=== PATIENT | female | born 1970 | race Caucasian/White ===

== ENCOUNTER 2017-10-31 10:34 | Emergency (ER) | payer SELFPAY ==
--- NOTE | 2017-10-31 10:40 | DI.RAD.S_ITS ---
PROCEDURE: XR CHEST 1V INDICATIONS: Chest Pain TECHNIQUE: One view of the chest was acquired. COMPARISON: None. FINDINGS: Surgical changes and devices: None. Lungs and pleura: No pleural effusions or pneumothorax. Lungs are clear. Mediastinum: Mediastinal contours appear normal. Heart size is normal. Bones and chest wall: No suspicious bony lesions. Overlying soft tissues appear unremarkable. IMPRESSION: No acute pulmonary process. Dictated by: Sara Garcia M.D. on 10/31/2017 at 10:52 Approved by: Sara Garcia M.D. on 10/31/2017 at 11:03
[2017-10-31 10:45] VITALS: BP 154/73; PULSE 74; RESP 13; TEMP 36.2; O2SAT 100
[2017-10-31] MEDS: ASPIRIN 81 MG TAB 324 MG PO (10:57)
[2017-10-31] MEDS: SODIUM CHLORIDE 0.9% 1,000 ML 150 ML IV (10:57)
[2017-10-31 11:03] LABS: Add Manual Diff / Slide Review NO; Basophils Percent Auto 0.5 % (0-2); Hemoglobin 13.1 g/dL (12.0-16.0); Lymphocytes Percent Auto 27.6 % (25-40); Mean Corpuscular HGB Conc 34.4 % (30-36); Mean Corpuscular Hemoglobin 30.7 PG (26-34); Monocytes Percent Auto 5.2 % (3-14); Neutrophils Absolute Auto 4800 /uL (3000-5900); Neutrophils Percent Auto 65.7 % (50-75); Platelet Count 243 X10^3/uL (150-400); Red Blood Cell Count 4.27 X10^6/uL (4.0-5.2); Red Cell Distribution Width 13.7 % (11.6-14.8); White Blood Cell Count 7.3 X10^3/uL (4.5-11.0)
[2017-10-31 11:16] VITALS: BP 154/73; PULSE 58; RESP 12; O2SAT 100
[2017-10-31 11:23] LABS: Alanine Aminotransferase 24 IU/L (9-52); Albumin 4.4 g/dL (3.5-5.0); Albumin Globulin Ratio 1.5 (1.0-2.8); Alkaline Phosphatase 65 U/L (38-126); Aspartate Aminotransferase 19 IU/L (14-36); Bilirubin Total 0.5 mg/dL (0.2-1.3); Blood Urea Nitrogen 14 mg/dL (7-17); Calcium 9.4 mg/dL (8.4-10.2); Carbon Dioxide 30 mmol/L (22-32); Chloride 98 mmol/L (98-107); Creatine Kinase 80 U/L (30-135); Estimated Glomerular Filt Rate > 60.0 mL/min (>60); Globulin 2.9 g/dL (1.7-4.1); Glucose 203 mg/dL (70-100); HEMOLYSIS < 15 (0-50); Lipase 44 U/L (23-300); Potassium 3.9 mmol/L (3.4-5.1); Sodium 139 mmol/L (137-145); Total Protein 7.3 g/dL (6.3-8.2)
[2017-10-31 11:34] LABS: Troponin I < 0.012 ng/mL (0.01-0.034)
[2017-10-31 11:40] VITALS: BP 140/68; PULSE 62; RESP 15; O2SAT 100
[2017-10-31 12:24] VITALS: BP 149/75; PULSE 62; RESP 12; O2SAT 100
[2017-10-31 13:31] VITALS: BP 141/69; PULSE 65; RESP 23; O2SAT 100
[2017-10-31 14:02] LABS: Troponin I < 0.012 ng/mL (0.01-0.034)
[2017-10-31 14:09] VITALS: BP 140/74; PULSE 65; RESP 18; O2SAT 100
--- NOTE | 2017-10-31 19:43 | ED_ITS ---
HPI - Chest Pain General Chief Complaint: Chest Pain Stated Complaint: CHEST PAIN Time Seen by Provider: 10/31/17 10:38 Source: patient Mode of arrival: ambulatory Limitations: no limitations History of Present Illness HPI narrative: Patient presents to the emergency department today with a chief complaint of a recurrence of left anterior chest pain with radiation to her left shoulder. She has had symptoms off and on since January and last evaluation was in January. She had been admitted for chest pain and was diagnosed with left anterior chest strain. Her pain has been present for the past few days and seems to maybe be more intense when she is active. She denies associated symptoms such as dizziness, weakness or lightheadedness. She denies any shortness of breath. She has had no recent injury nor cough with productive sputum. She was seen and evaluated by her primary care provider in sent here for a more thorough evaluation MD complaint: chest pain Onset (ago): day(s) Duration: constant Onset: during rest Pain location: left chest Severity: moderate Quality: aching and sharp Pain radiation: LUE Relieving factors: nothing Exacerbating factors: nothing Context: recent illness Related Data Home Medications Medication Instructions Recorded Confirmed ibuprofen 1 dose PO PRN PRN 10/31/17 10/31/17 lisinopril 10 mg PO QPM 10/31/17 10/31/17 metformin 500 mg PO BID 10/31/17 10/31/17 Allergies Allergy/AdvReac Type Severity Reaction Status Date / Time Sulfa (Sulfonamide Allergy Mild HIVES Verified 10/31/17 10:57 Antibiotics) [SULFA (SULFONAMIDE ANTIBIOTICS)] Review of Systems Review of Systems All systems reviewed & are unremarkable except as noted in HPI and below Constitutional Denies chills, Denies fever(s), Denies lethargy and Denies weakness Eyes Denies change in vision, Denies eye discharge, Denies irritation and Denies loss of vision ENT Ears, Nose, Mouth, and Throat: Denies change in voice, Denies neck pain and Denies sore throat Cardiovascular Reports chest pain, Denies irregular heart rhythm, Denies lightheadedness, Denies palpitations, Denies dyspnea, Denies dyspnea on exertion and Denies orthopnea Respiratory Denies cough, Denies dyspnea, Denies dyspnea on exertion and Denies wheezing Gastrointestinal Gastrointestinal: Denies abdominal pain, Denies change in bowel habits, Denies diarrhea, Denies nausea and Denies vomiting Genitourinary Denies hematuria, Denies flank pain, Denies urinary incontinence and Denies urinary urgency Musculoskeletal Denies neck pain Integumentary/Breasts Denies pruritus, Denies erythema, Denies rash and Denies wounds Neurologic Denies confusion, Denies loss of vision and Denies weakness Psychiatric Denies anxiety, Denies confusion, Denies depression, Denies homicidal ideation and Denies suicidal ideation Endocrine Denies palpitations Hematologic/Lymphatic Denies easy bruising Allergic/Immunologic Denies wheezing Exam Initial Vital Signs Initial Vital Signs: Vital Signs Temperature 97.2 F L 10/31/17 10:45 Pulse Rate 74 10/31/17 10:45 Respiratory Rate 13 10/31/17 10:45 Blood Pressure 154/73 H 10/31/17 10:45 Pulse Oximetry 100 10/31/17 10:45 Const General: cooperative and well developed Nutritional Appearance: well nourished Orientation: alert, awake, oriented x3 and not confused HENWV Head: normocephalic and atraumatic Ears: external ears normal and TM's normal bilaterally Nose: external nose normal and No nasal discharge Face and sinus: sinuses nontender, face symmetric, no sinus tenderness and No dry mucous membranes Mouth: oral mucosae normal and moist mucous membranes Teeth and gingiva: dentition normal Throat: tonsils normal and uvula midline Eyes General: appearance normal, both eyes and all related structures Eyelids: eyelids normal Conjunctivae: conjunctivae normal Sclera: sclerae normal Pupils: PERRL EOM: EOM intact bilaterally Neck Neck: normal visual inspection, trachea midline, No lymphadenopathy, No midline deformity and No JVD Lymphatic: No lymphedema Chest Other: Tender to palpation in left anterior chest into axilla Resp Effort & Inspection: normal respiratory effort, able to speak in complete sentences, no respiratory distress and no use of accessory muscles Auscultation: clear to auscultation bilaterally, no rales, no rhonchi and no wheezes Cardio Rate: regular rate Rhythm: regular rhythm Heart Sounds: no click, no gallops, no murmurs and no rubs Pulses: normal peripheral pulses GI Inspection: non-distended Palpation: soft, no hepatosplenomegaly, No guarding, No pulsatile mass and No tender Auscultation: normal bowel sounds Back/Spine/Pelvis Back: No CVA tenderness Cervical Spine: cervical ROM normal and No pain with cervical ROM Thoracic/Lumbar Spine: thoracic and lumbar spine normal to inspection Skin General: no rashes or lesions noted, No jaundice and No petechiae Neuro General: alert, oriented x3, gait normal and no focal motor deficits Speech: speech normal Extrem General: full ROM, no clubbing, cyanosis or edema, no pedal edema and no calf tenderness Psych Appearance: well kempt Mental Status: mental status grossly normal Attitude: cooperative Thought Content: normal and suicidality Judgment: judgment good Course Orders Ordered: ED Orders 10/31/17 13:28 Troponin I Stat Discontinued Medications Aspirin (Aspirin Chew) 324 mg PO NOW ONE Stop: 10/31/17 10:41 Last Admin: 10/31/17 10:57 Dose: 324 mg Sodium Chloride (Normal Saline 0.9%) 1,000 mls @ 150 mls/hr IV CONT TAURUS Last Admin: 10/31/17 10:57 Dose: 150 mls/hr Vital Signs - 8 hr 10/31/17 12:24 10/31/17 13:31 10/31/17 14:09 Pulse Rate 62 65 65 Respiratory Rate 12 23 18 Blood Pressure [Left Arm] 149/75 H 141/69 H 140/74 H Pulse Oximetry 100 100 100 MDM - Chest Pain Differential Diagnosis Likely stable angina, unstable angina pectoris, atypical chest pain, st elevation myocardial infarction, costochondritis, chest pain and biliary colic Medical Records Data Attestation: I reviewed the patient's medical records. Lab Data Result diagrams: 10/31/17 10:48 10/31/17 10:48 Lab Results 10/31/17 10/31/17 10/31/17 Range/Units 10:48 10:48 13:28 WBC 7.3 (4.5-11.0) X10^3/uL RBC 4.27 (4.0-5.2) X10^6/uL Hgb 13.1 (12.0-16.0) g/dL Hct 38.0 (36-46) % MCV 89.0 (80-100) fL MCH 30.7 (26-34) PG MCHC 34.4 (30-36) % RDW 13.7 (11.6-14.8) % Plt Count 243 (150-400) X10^3/uL Neut % (Auto) 65.7 (50-75) % Lymph % (Auto) 27.6 (25-40) % [place] % (Auto) 5.2 (3-14) % Eos % (Auto) 1.0 L (2-4) % Baso % (Auto) 0.5 (0-2) % Neut # (Auto) 4800 (2364-0702) /uL Sodium 139 (137-145) mmol/L Potassium 3.9 (3.4-5.1) mmol/L Chloride 98 (98-107) mmol/L Carbon Dioxide 30 (22-32) mmol/L BUN 14 (7-17) mg/dL Creatinine 0.70 (0.52-1.04) mg/dL Estimated GFR > 60.0 (>60) mL/min BUN/Creatinine Ratio 20.0 (6-22) Glucose 203 H (70-100) mg/dL Calcium 9.4 (8.4-10.2) mg/dL Total Bilirubin 0.5 (0.2-1.3) mg/dL AST 19 (14-36) IU/L ALT 24 (9-52) IU/L Alkaline Phosphatase 65 (38-126) U/L Total Creatine Kinase 80 (30-135) U/L Troponin I < 0.012 < 0.012 (0.01-0.034) ng/mL Total Protein 7.3 (6.3-8.2) g/dL Albumin 4.4 (3.5-5.0) g/dL Globulin 2.9 (1.7-4.1) g/dL Albumin/Globulin Ratio 1.5 (1.0-2.8) Lipase 44 (23-300) U/L Discharge Plan Departure Patient Disposition: Home, Self-Care Clinical Impression: Atypical chest pain Discharge Date/Time: 10/31/17 14:24 Interventions: ED Discharge Assessment Last Done: 10/31/17 14:23 Instructions: DI for Atypical Chest Pain Activity Restrictions/Additional Instructions: *You have been diagnosed with [ atypical chest pain ] *What to do: * continue to take medications as directed *Follow up with your primary care provider in 2-3 days, call for an appointment. Let them know you were seen in the Emergency Department and that we ask that you be seen in follow up *Return to ER if you should have any new, worsening or concerning symptoms Prescriptions: No Action metformin 500 mg Tablet 500 mg PO BID RF: 0 lisinopril 10 mg Tablet 10 mg PO QPM RF: 0 ibuprofen 200 mg Tablet 1 dose PO PRN PRN (Reason: Pain, Mild) RF: 0 Referrals: Roxanna Rasmussen ARNP [Primary Care Provider] -
--- NOTE | 2017-12-03 11:23 | PC.NURSE ---
Addendum entered by Tiffanie Workman R.N. 12/03/17 11:24: Late entry Original Note: IV Normal Saline infusion stopped at 1424 at time of discharge. Waste amount 400 mL.
== END 2017-10-31 14:24 | disposition home or self-care (01) ==
PROVIDERS: Emergency Provider Emergency Medicine; PCP Nurse Practitioner Family
DX: R07.89 Other chest pain (principal)
CPT/HCPCS: 36415; 36591; 71045; 80053; 81003; 82550; 82553; 83690; 84484; 85025; 93005; 93010; 96360; 96361; 99283; 99285

== ENCOUNTER → 2018-05-04 11:20 | Outpatient (REF) | payer OTHER, SELFPAY ==
[2018-05-04 11:44] LABS: Influenza A and B by PCR Rapid Negative (Negative)
== END ==
LOC: LAB 11:20
PROVIDERS: PCP Nurse Practitioner Family; Visit Provider Nurse Practitioner Family
DX: R05 Cough (principal)
CPT/HCPCS: 87400

== ENCOUNTER → 2018-05-04 11:24 | Outpatient (CLI) | payer OTHER, SELFPAY ==
--- NOTE | 2018-05-04 | DI.RAD.S_ITS ---
PROCEDURE: XR CHEST 2V INDICATIONS: COUGH TECHNIQUE: 2 views of the chest were acquired. COMPARISON: [facility], CR, XR CHEST 1V, 10/31/2017, 10:47. FINDINGS: Surgical changes and devices: None. Lungs and pleura: Lungs are clear. No pleural effusions or pneumothorax. Mediastinum: Mediastinal contours are normal. Heart size is normal. Bones and chest wall: No suspicious bony abnormalities. Soft tissues appear unremarkable. IMPRESSION: No acute cardiopulmonary disease. Dictated by: Jack Pryor M.D. on 05/04/2018 at 12:36 Approved by: Jack Pryor M.D. on 05/04/2018 at 12:36
== END ==
PROVIDERS: PCP Nurse Practitioner Family; Visit Provider Nurse Practitioner Family
DX: R05 Cough (principal)
CPT/HCPCS: 71046

== ENCOUNTER 2018-11-25 19:30 | Emergency (ER) | payer OTHER, SELFPAY ==
[2018-11-25] VITALS (8 sets, daily range): BP systolic 126–159; BP diastolic 50–82; PULSE 64–82; RESP 10–21; TEMP 36.7; O2SAT 96–100; BMI 34.6
--- NOTE | 2018-11-25 19:42 | ED.CHESTPAIN ---
HPI - Chest Pain General Chief Complaint: Dizziness Stated Complaint: nausea/vomiting dizzy sob today Time Seen by Provider: 11/25/18 19:34 Source: patient and family Mode of arrival: ambulatory Limitations: no limitations History of Present Illness HPI narrative: 48-year-old female nonsmoker with history of hypertension and diabetes presents with a chief complaint of a sudden onset epigastric discomfort with nausea and subsequent, albeit brief, dizziness. She denies provocation, palliation or radiation of her discomfort. She denies chest pain or shortness of breath. She denies any history of the same. She denies recent trauma, recent travel, history of clots. She frequently exercises on the elliptical machine and denies any chest pain or other cardiac equivalent. She had eaten some foul tasting food about an hour prior to her symptoms and questions whether it may have been bad food. Additionally she was up much later than normal last night, slept in later than normal today and has not eaten as much is that which would be normal for MD complaint: other Onset (ago): hour(s) Duration: improved Onset: during rest Pain location: epigastric Severity: mild Quality: aching Pain radiation: none Relieving factors: nothing Exacerbating factors: nothing Associated symptoms: nausea and other Treatments prior to arrival chest pain: none Related Data Home Medications Medication Instructions Recorded Confirmed ibuprofen 1 dose PO PRN PRN 10/31/17 10/31/17 lisinopril 10 mg PO QPM 10/31/17 10/31/17 metformin 500 mg PO BID 10/31/17 10/31/17 Allergies Allergy/AdvReac Type Severity Reaction Status Date / Time Sulfa (Sulfonamide Allergy Mild HIVES Verified 11/25/18 19:41 Antibiotics) [SULFA (SULFONAMIDE ANTIBIOTICS)] atorvastatin [From Lipitor] Allergy Verified 11/25/18 19:41 Review of Systems Constitutional Constitutional: Denies chills, Denies fatigue, Denies fever(s), Denies frequent falls, Denies lethargy and Denies weakness Eyes Eyes: Denies change in vision, Denies eye discharge, Denies irritation and Denies loss of vision ENT Ears, Nose, Mouth, and Throat: Denies change in voice, Denies dizziness, Denies neck pain, Denies sore throat and Denies throat swelling Cardiovascular Cardiovascular: Denies chest pain, Denies irregular heart rhythm, Denies lightheadedness, Denies palpitations, Denies dyspnea, Denies dyspnea on exertion and Denies orthopnea Respiratory Respiratory: Denies cough, Denies dyspnea, Denies dyspnea on exertion and Denies wheezing Gastrointestinal Gastrointestinal: Denies abdominal pain, Denies change in bowel habits, Denies diarrhea, Reports nausea and Denies vomiting Genitourinary Genitourinary: Denies hematuria, Denies flank pain, Denies urinary incontinence and Denies urinary urgency Musculoskeletal Musculoskeletal: Denies back pain, Denies muscle weakness, Denies neck pain, Denies numbness and Denies tingling Integumentary/Breasts Skin/Breast: Denies pruritus, Denies erythema, Denies rash and Denies wounds Neurologic Neurologic: Denies behavioral changes, Denies confusion, Denies dizziness, Denies frequent falls, Denies loss of vision, Denies numbness, Denies tingling and Denies weakness Psychiatric Psychiatric: Denies anxiety, Denies behavioral changes, Denies confusion, Denies depression, Denies homicidal ideation and Denies suicidal ideation Endocrine Endocrine: Denies fatigue, Denies flushing and Denies palpitations Hematologic/Lymphatic Hematologic/Lymphatic: Denies easy bruising Allergic/Immunologic Allergic/Immunologic: Denies urticaria, Denies throat swelling and Denies wheezing [facility] Social History Smoking Status: Unknown if ever smoked Social History Smoking Status: Unknown if ever smoked Exam Narrative Exam Narrative: GENERAL: [48] year old patient appears stated age. Well-nourished, well-developed patient, in mild distress. HEAD: Atraumatic. Normocephalic. EYES: Pupils equal round and reactive. Extraocular motions intact. No scleral icterus. No injection or drainage. ENT: Nose without bleeding, purulent drainage. Throat without erythema, tonsillar hypertrophy or exudate. Airway patent. NECK: Trachea midline. Non tender CARDIOVASCULAR: Regular rate and rhythm without murmurs, gallops, or rubs. RESPIRATORY: Clear to auscultation. Breath sounds equal bilaterally. No wheezes, rales, or rhonchi. GASTROINTESTINAL: Abdomen soft, non-tender, nondistended. EXTREMITIES: No edema or joint tenderness. BACK: Nontender without deformity or crepitance. No flank tenderness. NEURO: AOx3. SKIN: No rash or erythema of visible areas NIH Stroke Scale 1a. LOC: Patient is alert and keenly responsive (0) 1b. LOC Questions: Patient answers both LOC questions accurately (0) 1c. LOC Commands: Patient performs both tasks correctly (0) 2. Best Gaze: Normal (0) 3. Visual: No visual loss (0) 4. Facial palsy: Normal symmetrical movements (0) 5. Motor arm: No drift (0) 6. Motor leg: No drift (0) 7. Limb ataxia: Absent (0) 8. Sensory: Normal (0) 9. Best language: No aphasia; normal (0) 10. Dysarthria: Normal (0) 11. Extinction and inattention: No abnormality (0) NIHSS: 0 Initial Vital Signs Initial Vital Signs: Vital Signs Temperature 98.1 F 11/25/18 19:38 Pulse Rate 78 11/25/18 19:38 Respiratory Rate 21 11/25/18 19:38 Blood Pressure 159/82 H 11/25/18 19:38 Pulse Oximetry 100 11/25/18 19:38 Course Orders Ordered: ED Orders 11/25/18 22:55 Troponin I Stat Discontinued Medications Aspirin (Aspirin Chew) 324 mg PO NOW ONE Stop: 11/25/18 19:44 Last Admin: 11/25/18 19:54 Dose: 324 mg Documented by: JON Sodium Chloride (Normal Saline 0.9%) 1,000 mls @ 150 mls/hr IV CONT TAURUS Last Infusion: 11/26/18 00:14 Dose: 0 mls/hr Documented by: Admin: 11/25/18 19:57 Dose: 150 mls/hr Documented by: JON Vital Signs Vital signs: Vital Signs - 8 hr 11/26/18 00:12 Pulse Rate 68 Respiratory Rate 16 Blood Pressure 138/74 Pulse Oximetry 98 MDM - Chest Pain Lab Data Result diagrams: 11/25/18 19:40 11/25/18 19:40 Labs: Lab Results 11/25/18 11/25/18 11/25/18 Range/Units 19:40 19:40 19:40 WBC 10.1 (4.5-11.0) X10^3/uL RBC 4.73 (4.0-5.2) X10^6/uL Hgb 14.0 (12.0-16.0) g/dL Hct 41.5 (36-46) % MCV 87.7 (80-100) fL MCH 29.6 (26-34) PG MCHC 33.7 (30-36) % RDW 13.7 (11.6-14.8) % Plt Count 265 (150-400) X10^3/uL Neut % (Auto) 61.8 (50-75) % Lymph % (Auto) 29.5 (25-40) % [place] % (Auto) 7.2 (3-14) % Eos % (Auto) 0.9 L (2-4) % Baso % (Auto) 0.6 (0-2) % Neut # (Auto) 6200 (2936-5404) /uL Lymph # (Auto) 3000 (6548-6816) /uL [place] # (Auto) 700 (0-900) /uL Eos # (Auto) 100 (0-450) /uL Baso # (Auto) 100 (0-100) /uL PT 11.0 (10.1-12.7) SECONDS INR 1.0 (0.9-1.3) APTT 34 (26.4-36.2) SECONDS D-Dimer 222 (<230) ng/mL Sodium 137 (137-145) mmol/L Potassium 3.5 (3.4-5.1) mmol/L Chloride 101 (98-107) mmol/L Carbon Dioxide 25 (22-32) mmol/L BUN 14 (7-17) mg/dL Creatinine 0.70 (0.52-1.04) mg/dL Estimated GFR > 60.0 (>60) mL/min BUN/Creatinine Ratio 20.0 (6-22) Glucose 160 H (70-100) mg/dL Calcium 9.8 (8.4-10.2) mg/dL Total Bilirubin 0.2 (0.2-1.3) mg/dL AST 33 (14-36) IU/L ALT 45 (9-52) IU/L Alkaline Phosphatase 86 (38-126) U/L Total Creatine Kinase 76 (30-135) U/L CK-MB (CK-2) TNP CK-MB (CK-2) Rel Index TNP Troponin I < 0.012 (0.01-0.034) ng/mL B-Natriuretic Peptide < 100 (<100) Total Protein 8.0 (6.3-8.2) g/dL Albumin 4.6 (3.5-5.0) g/dL Globulin 3.4 (1.7-4.1) g/dL Albumin/Globulin Ratio 1.4 (1.0-2.8) Lipase 80 (23-300) U/L 11/25/18 Range/Units 22:55 WBC (4.5-11.0) X10^3/uL RBC (4.0-5.2) X10^6/uL Hgb (12.0-16.0) g/dL Hct (36-46) % MCV (80-100) fL MCH (26-34) PG MCHC (30-36) % RDW (11.6-14.8) % Plt Count (150-400) X10^3/uL Neut % (Auto) (50-75) % Lymph % (Auto) (25-40) % [place] % (Auto) (3-14) % Eos % (Auto) (2-4) % Baso % (Auto) (0-2) % Neut # (Auto) (2469-5264) /uL Lymph # (Auto) (2807-8701) /uL [place] # (Auto) (0-900) /uL Eos # (Auto) (0-450) /uL Baso # (Auto) (0-100) /uL PT (10.1-12.7) SECONDS INR (0.9-1.3) APTT (26.4-36.2) SECONDS D-Dimer (<230) ng/mL Sodium (137-145) mmol/L Potassium (3.4-5.1) mmol/L Chloride (98-107) mmol/L Carbon Dioxide (22-32) mmol/L BUN (7-17) mg/dL Creatinine (0.52-1.04) mg/dL Estimated GFR (>60) mL/min BUN/Creatinine Ratio (6-22) Glucose (70-100) mg/dL Calcium (8.4-10.2) mg/dL Total Bilirubin (0.2-1.3) mg/dL AST (14-36) IU/L ALT (9-52) IU/L Alkaline Phosphatase (38-126) U/L Total Creatine Kinase (30-135) U/L CK-MB (CK-2) CK-MB (CK-2) Rel Index Troponin I < 0.012 (0.01-0.034) ng/mL B-Natriuretic Peptide (<100) Total Protein (6.3-8.2) g/dL Albumin (3.5-5.0) g/dL Globulin (1.7-4.1) g/dL Albumin/Globulin Ratio (1.0-2.8) Lipase (23-300) U/L Point of Care Testing Glucose POC 160 MDM Narrative Medical decision making narrative: Multiple etiologies for patient's symptoms considered including: [Multiple causes of chest pain considered including AK, PE, pneumothorax, pneumonia, aortic dissection, and pleurisy. Patient reports no radiation, no diaphoresis, no provocation with exertion, and no vomiting] Patient's symptoms improved or duration of stay with above-stated therapies. Findings and discharge diagnosis discussed with patient/family followed by verbalization of understanding Return precautions discussed with patient/family whom verbalize understanding. Discharge Plan Departure Patient Disposition: Home Clinical Impression: Atypical chest pain Discharge Date/Time: 11/26/18 00:12 Instructions: DI for Atypical Chest Pain Activity Restrictions/Additional Instructions: *You have been diagnosed with [atypical chest pain] *What to do: *Continue to take medications as directed *Follow up with your primary care provider in 2-3 days, call for an appointment. Let them know you were seen in the Emergency Department and that we ask that you be seen in follow up *Return to ER if you should have any new, worsening or concerning symptoms Prescriptions: No Action metformin 500 mg Tablet 500 mg PO BID RF: 0 lisinopril 10 mg Tablet 10 mg PO QPM RF: 0 ibuprofen 200 mg Tablet 1 dose PO PRN PRN (Reason: Pain, Mild) RF: 0 Referrals: Roxanna Rasmussen ARNP [Primary Care Provider] -
--- NOTE | 2018-11-25 19:43 | DI.RAD.S_ITS ---
PROCEDURE: XR CHEST 1V INDICATIONS: chest pain TECHNIQUE: One view of the chest was acquired. COMPARISON: [facility], CR, XR CHEST 1V, 10/31/2017, 10:47. FINDINGS: Surgical changes and devices: None. Lungs and pleura: Lungs are clear. No pleural effusions or pneumothorax. Mediastinum: Mediastinal contours appear normal. Heart size is normal. Bones and chest wall: No suspicious bony lesions. Overlying soft tissues appear unremarkable. IMPRESSION: No acute cardiopulmonary disease process. Dictated by: Jeanna Narvaez MD, PhD on 11/25/2018 at 20:19 Approved by: Jeanna Narvaez MD, PhD on 11/25/2018 at 20:19
[2018-11-25 19:52] LABS: Add Manual Diff / Slide Review NO; Basophils Absolute Auto 100 /uL (0-100); Basophils Percent Auto 0.6 % (0-2); Eosinophils Absolute Auto 100 /uL (0-450); Eosinophils Percent Auto 0.9 % (2-4); Hematocrit 41.5 % (36-46); Lymphocytes Absolute Auto 3000 /uL (1100-4500); Lymphocytes Percent Auto 29.5 % (25-40); Mean Corpuscular HGB Conc 33.7 % (30-36); Mean Corpuscular Hemoglobin 29.6 PG (26-34); Mean Corpuscular Volume 87.7 fL (80-100); Monocytes Absolute Auto 700 /uL (0-900); Monocytes Percent Auto 7.2 % (3-14); Neutrophils Absolute Auto 6200 /uL (1500-7000); Neutrophils Percent Auto 61.8 % (50-75); Platelet Count 265 X10^3/uL (150-400); Red Blood Cell Count 4.73 X10^6/uL (4.0-5.2); Red Cell Distribution Width 13.7 % (11.6-14.8); White Blood Cell Count 10.1 X10^3/uL (4.5-11.0)
[2018-11-25] MEDS: ASPIRIN 81 MG CHEW TAB 324 MG PO (19:54)
[2018-11-25] MEDS: SODIUM CHLORIDE 0.9% 1,000 ML 150 ML IV (19:57)
[2018-11-25 20:04] LABS: Alanine Aminotransferase 45 IU/L (9-52); Albumin 4.6 g/dL (3.5-5.0); Albumin Globulin Ratio 1.4 (1.0-2.8); Alkaline Phosphatase 86 U/L (38-126); Aspartate Aminotransferase 33 IU/L (14-36); Bilirubin Total 0.2 mg/dL (0.2-1.3); Blood Urea Nitrogen 14 mg/dL (7-17); Calcium 9.8 mg/dL (8.4-10.2); Carbon Dioxide 25 mmol/L (22-32); Chloride 101 mmol/L (98-107); Creatine Kinase 76 U/L (30-135); Estimated Glomerular Filt Rate > 60.0 mL/min (>60); Globulin 3.4 g/dL (1.7-4.1); Glucose 160 mg/dL (70-100); HEMOLYSIS < 15 (0-50); Lipase 80 U/L (23-300); Potassium 3.5 mmol/L (3.4-5.1); Sodium 137 mmol/L (137-145)
[2018-11-25 20:11] LABS: B Type Natriuretic Peptide < 100 (<100)
[2018-11-25 20:15] LABS: Troponin I < 0.012 ng/mL (0.01-0.034)
[2018-11-25 20:17] LABS: PTT Partial Thromboplastin Tim 34 SECONDS (26.4-36.2)
[2018-11-25 20:18] LABS: D Dimer 222 ng/mL (<230)
[2018-11-25 23:24] LABS: Troponin I < 0.012 ng/mL (0.01-0.034)
[2018-11-26 00:12] VITALS: BP 138/74; PULSE 68; RESP 16; O2SAT 98
== END 2018-11-26 00:12 | disposition home or self-care (01) ==
PROVIDERS: Emergency Provider Emergency Medicine; PCP Nurse Practitioner Family
DX: R07.89 Other chest pain (principal)
CPT/HCPCS: 36415; 36591; 71045; 80053; 82550; 82962; 83690; 83880; 84484; 85025; 85379; 85610; 85730; 93005; 96360; 96361; 99284; 99285

== ENCOUNTER 2019-10-17 16:53 | Observation (INO) | payer OTHER, SELFPAY ==
[2019-10-17] VITALS (8 sets, daily range): BP systolic 143–184; BP diastolic 66–82; PULSE 61–70; RESP 12–24; TEMP 36.3–36.6; O2SAT 97–100; BMI 34.7
--- NOTE | 2019-10-17 16:58 | DI.RAD.S_ITS ---
PROCEDURE: XR CHEST 2V INDICATIONS: chest pain TECHNIQUE: 2 views of the chest were acquired. COMPARISON: [facility], CR, XR CHEST 1V, 11/25/2018, 20:00. FINDINGS: Surgical changes and devices: None. Lungs and pleura: Lungs are clear. No pleural effusions or pneumothorax. Mediastinum: Central vasculature is mildly prominent and indistinct. Heart size is normal. Bones and chest wall: No suspicious bony abnormalities. Soft tissues appear unremarkable. IMPRESSION: 1. Findings suggest central venous congestion. Correlate with BNP. Dictated by: Deirdre Yusuf M.D. on 10/17/2019 at 17:33 Approved by: Deirdre Yusuf M.D. on 10/17/2019 at 17:34
[2019-10-17 17:17] LABS: Add Manual Diff / Slide Review NO; Basophils Absolute Auto 0 /uL (0-100); Basophils Percent Auto 0.5 % (0-2); Eosinophils Absolute Auto 100 /uL (0-450); Hematocrit 37.8 % (36-46); Hemoglobin 12.8 g/dL (12.0-16.0); Lymphocytes Absolute Auto 2100 /uL (1100-4500); Lymphocytes Percent Auto 26.8 % (25-40); Mean Corpuscular Hemoglobin 29.8 PG (26-34); Mean Corpuscular Volume 87.9 fL (80-100); Monocytes Absolute Auto 500 /uL (0-900); Monocytes Percent Auto 6.3 % (3-14); Neutrophils Absolute Auto 5200 /uL (1500-7000); Neutrophils Percent Auto 65.4 % (50-75); Platelet Count 224 X10^3/uL (150-400); Red Cell Distribution Width 13.6 % (11.6-14.8)
[2019-10-17 17:22] LABS: Prothrombin Time 11.7 SECONDS (10.1-12.7)
[2019-10-17 17:24] LABS: PTT Partial Thromboplastin Tim 38 SECONDS (26.4-36.2)
[2019-10-17 17:26] LABS: Alanine Aminotransferase 39 IU/L (<35); Albumin 4.6 g/dL (3.5-5.0); Albumin Globulin Ratio 1.6 (1.0-2.8); Alkaline Phosphatase 74 U/L (38-126); Aspartate Aminotransferase 31 IU/L (14-36); BUN Creatinine Ratio 16.4 (6-22); Bilirubin Total 0.4 mg/dL (0.2-1.3); Blood Urea Nitrogen 11 mg/dL (7-17); Calcium 9.6 mg/dL (8.4-10.2); Carbon Dioxide 28 mmol/L (22-32); Chloride 102 mmol/L (98-107); Creatine Kinase 84 U/L (30-135); Estimated Glomerular Filt Rate > 60.0 mL/min (>60); Globulin 2.8 g/dL (1.7-4.1); Glucose 142 mg/dL (70-100); HEMOLYSIS < 15 (0-50); Lipase 68 U/L (23-300); Potassium 3.8 mmol/L (3.4-5.1); Sodium 138 mmol/L (137-145); Total Protein 7.4 g/dL (6.3-8.2)
[2019-10-17 17:38] LABS: Troponin I < 0.012 ng/mL (0.01-0.034)
--- NOTE | 2019-10-17 18:25 | ED.CHESTPAIN ---
HPI - Chest Pain <Jose Armando Cassidy MD - Last Filed: 10/18/19 07:48> General Chief Complaint: Chest Pain Stated Complaint: chest pain, nausea Time Seen by Provider: 10/17/19 18:06 Source: patient Mode of arrival: Ambulatory Limitations: no limitations History of Present Illness HPI narrative: Patient awoke this morning with feelings of grogginess and trouble focusing. Had left arm discomfort. Radiating to the shoulder. Also had nausea. No palpitations or dyspnea. No diaphoresis. Patient is diabetic. No previous cardiac stress workup. Related Data Home Medications Medication Instructions Recorded Confirmed ibuprofen 1 dose PO PRN PRN 10/31/17 10/18/19 lisinopril 20 mg PO QPM 10/31/17 10/18/19 metformin 1,000 mg PO BID 10/31/17 10/18/19 hydrochlorothiazide 10 mg PO BEDTIME 10/18/19 10/18/19 Allergies Allergy/AdvReac Type Severity Reaction Status Date / Time Sulfa (Sulfonamide Allergy Mild HIVES Verified 10/17/19 16:55 Antibiotics) [SULFA (SULFONAMIDE ANTIBIOTICS)] atorvastatin [From Lipitor] Allergy Verified 10/17/19 16:55 Review of Systems <Jose Armando Cassidy MD - Last Filed: 10/18/19 07:48> Review of Systems Narrative: GENERAL: Denies chills, fatigue, malaise, fever, sweats. HEENT: Denies sinus pain, ear pain, sore throat, difficulty swallowing, dizziness. RESPIRATORY: Denies dyspnea, cough, wheezing, hemoptysis, sputum. CARDIOVASCULAR: Denies diaphoresis palpitations, has chest pain and left arm pain GASTROINTESTINAL: Denies vomiting, abdominal pain, diarrhea, constipation, melena. Complains of nausea : Denies dysuria, frequency, incontinence, hematuria, urinary retention. MUSCULOSKELETAL: denies weakness, joint pain, or bony pain SKIN: Denies rash, skin lesions, or other NEUROLOGIC: Denies weakness, headache, numbness, change in speech, confusion, seizures, incoordination. PSYCHIATRIC: No concerning psychosocial issues. ROS Unobtainable: All systems reviewed & are unremarkable except as noted in HPI and below Patient History <Jose Armando Cassidy MD - Last Filed: 10/18/19 07:48> Social History household members: spouse and children Smoking Status: Never smoker alcohol intake: current Smoking Status: Unknown if ever smoked alcohol intake frequency: holidays/special occasions only Substance Use Type: marijuana Exam <Jose Armando Cassidy MD - Last Filed: 10/18/19 07:48> Narrative Exam Narrative: GENERAL: patient appears stated age. Well-nourished, well-developed patient, in no distress, not toxic HEAD: Atraumatic. Normocephalic. EYES: Pupils equal round and reactive. Extraocular motions intact. No scleral icterus. No injection or drainage. ENT: Nose without bleeding, purulent drainage. Throat without erythema, tonsillar hypertrophy or exudate. Airway patent. NECK: Trachea midline. Non tender CARDIOVASCULAR: Regular rate and rhythm without murmurs, gallops, or rubs. RESPIRATORY: Clear to auscultation. Breath sounds equal bilaterally. No wheezes, rales, or rhonchi. GASTROINTESTINAL: Abdomen soft, non-tender, nondistended. EXTREMITIES: No edema or joint tenderness. BACK: Nontender without deformity or crepitance. No flank tenderness. NEURO: AOx3. SKIN: No rash or erythema of visible areas PSYCH: Not anxious, is cooperative Initial Vital Signs Initial Vital Signs: Vital Signs Temperature 97.9 F 10/17/19 16:56 Pulse Rate 70 10/17/19 16:56 Respiratory Rate 14 10/17/19 16:56 Blood Pressure 183/82 H 10/17/19 16:56 Pulse Oximetry 100 10/17/19 16:56 <Kelly Dutta MD - Last Filed: 10/18/19 23:52> Initial Vital Signs Initial Vital Signs: Vital Signs Temperature 97.9 F 10/17/19 16:56 Pulse Rate 70 10/17/19 16:56 Respiratory Rate 14 10/17/19 16:56 Blood Pressure 183/82 H 10/17/19 16:56 Pulse Oximetry 100 10/17/19 16:56 Course <Jose Armando Cassidy MD - Last Filed: 10/18/19 07:48> Course Course Narrative: Chest pain has improved. I was unable to place orders in for blood pressure medication for admission. Emergency nurse is going to contact floor nurse to contact on-call provider to put in orders Decision to Admit Date: 10/17/19 Decision to Admit time: 19:34 Orders Ordered: Discontinued Medications Acetaminophen (Tylenol) 650 mg PO Q6HR PRN PRN Reason: Fever/Mild Pain (1-3) Sodium Chloride (Normal Saline 0.9%) 1,000 mls @ 125 mls/hr IV CONT TAURUS Last Admin: 10/17/19 22:04 Dose: 125 mls/hr Documented by: ADE Metformin HCl (Glucophage) 1,000 mg PO BIDAC TAURUS Last Admin: 10/18/19 16:55 Dose: 1,000 mg Documented by: Admin: 10/18/19 08:29 Dose: 1,000 mg Documented by: BENJAMIN Nitroglycerin (Nitro-Bid) 1 inch TOP NOW ONE Stop: 10/17/19 18:26 Last Admin: 10/17/19 19:02 Dose: 1 inch Documented by: JAMES Non-Formulary Medication (Patient's Own Medication) 0 each PO PRN PRN PRN Reason: HOME MEDICATION STORAGE Ondansetron HCl (Zofran) 4 mg IV Q4HR PRN PRN Reason: Nausea And Vomiting Reevaluation(s) Reevaluation #1: No new issues. Patient feeling better after nitro paste. Blood pressure is improved Time: 19:34 Consultations Consultation #1: Spoke with Dr. sadler, primary family group admits their own. Will admit. Patient already took her metformin and thiazide for today. She states she wants to take her own lisinopril tonight Time: 19:35 Vital Signs Vital signs: Vital Signs - 8 hr 10/17/19 19:00 10/17/19 19:02 10/17/19 19:30 Pulse Rate 61 62 68 Respiratory Rate 14 20 Blood Pressure 143/67 H 143/67 H Pulse Oximetry 99 100 10/17/19 19:31 10/17/19 20:00 Pulse Rate 68 67 Respiratory Rate 24 12 Blood Pressure 184/73 H 144/66 H Pulse Oximetry 99 97 <Kelly Dutta MD - Last Filed: 10/18/19 23:52> Orders Ordered: Discontinued Medications Acetaminophen (Tylenol) 650 mg PO Q6HR PRN PRN Reason: Fever/Mild Pain (1-3) Sodium Chloride (Normal Saline 0.9%) 1,000 mls @ 125 mls/hr IV CONT TAURUS Last Admin: 10/17/19 22:04 Dose: 125 mls/hr Documented by: ADE Metformin HCl (Glucophage) 1,000 mg PO BIDAC TUARUS Last Admin: 10/18/19 16:55 Dose: 1,000 mg Documented by: Admin: 10/18/19 08:29 Dose: 1,000 mg Documented by: BENJAMIN Nitroglycerin (Nitro-Bid) 1 inch TOP NOW ONE Stop: 10/17/19 18:26 Last Admin: 10/17/19 19:02 Dose: 1 inch Documented by: JAMES Non-Formulary Medication (Patient's Own Medication) 0 each PO PRN PRN PRN Reason: HOME MEDICATION STORAGE Ondansetron HCl (Zofran) 4 mg IV Q4HR PRN PRN Reason: Nausea And Vomiting Vital Signs Vital signs: Vital Signs - 8 hr 10/17/19 19:00 10/17/19 19:02 10/17/19 19:30 Pulse Rate 61 62 68 Respiratory Rate 14 20 Blood Pressure 143/67 H 143/67 H Pulse Oximetry 99 100 10/17/19 19:31 10/17/19 20:00 Pulse Rate 68 67 Respiratory Rate 24 12 Blood Pressure 184/73 H 144/66 H Pulse Oximetry 99 97 MDM - Chest Pain <Jose Armando Cassidy MD - Last Filed: 10/18/19 07:48> Lab Data Result diagrams: 10/17/19 17:05 10/17/19 17:05 Labs: Lab Results 10/17/19 10/17/19 10/17/19 Range/Units 17:05 17:05 17:05 WBC 8.0 (4.5-11.0) X10^3/uL RBC 4.30 (4.0-5.2) X10^6/uL Hgb 12.8 (12.0-16.0) g/dL Hct 37.8 (36-46) % MCV 87.9 (80-100) fL MCH 29.8 (26-34) PG MCHC 34.0 (30-36) % RDW 13.6 (11.6-14.8) % Plt Count 224 (150-400) X10^3/uL Neut % (Auto) 65.4 (50-75) % Lymph % (Auto) 26.8 (25-40) % [place] % (Auto) 6.3 (3-14) % Eos % (Auto) 1.0 L (2-4) % Baso % (Auto) 0.5 (0-2) % Neut # (Auto) 5200 (5151-1094) /uL Lymph # (Auto) 2100 (1704-2605) /uL [place] # (Auto) 500 (0-900) /uL Eos # (Auto) 100 (0-450) /uL Baso # (Auto) 0 (0-100) /uL PT 11.7 (10.1-12.7) SECONDS INR 1.0 (0.9-1.3) APTT 38 H D (26.4-36.2) SECONDS Sodium 138 (137-145) mmol/L Potassium 3.8 (3.4-5.1) mmol/L Chloride 102 (98-107) mmol/L Carbon Dioxide 28 (22-32) mmol/L BUN 11 (7-17) mg/dL Creatinine 0.67 (0.52-1.04) mg/dL Estimated GFR > 60.0 (>60) mL/min BUN/Creatinine Ratio 16.4 (6-22) Glucose 142 H (70-100) mg/dL Calcium 9.6 (8.4-10.2) mg/dL Total Bilirubin 0.4 (0.2-1.3) mg/dL AST 31 (14-36) IU/L ALT 39 H (<35) IU/L Alkaline Phosphatase 74 (38-126) U/L Total Creatine Kinase 84 (30-135) U/L CK-MB (CK-2) TNP CK-MB (CK-2) Rel Index TNP Troponin I < 0.012 (0.01-0.034) ng/mL NT-Pro-B Natriuret Pep (<125) pg/mL Total Protein 7.4 (6.3-8.2) g/dL Albumin 4.6 (3.5-5.0) g/dL Globulin 2.8 (1.7-4.1) g/dL Albumin/Globulin Ratio 1.6 (1.0-2.8) Lipase 68 (23-300) U/L COVID-19 PCR (Negative) 07/29/20 07/29/20 Range/Units 18:11 19:15 WBC (4.5-11.0) X10^3/uL RBC (4.0-5.2) X10^6/uL Hgb (12.0-16.0) g/dL Hct (36-46) % MCV (80-100) fL MCH (26-34) PG MCHC (30-36) % RDW (11.6-14.8) % Plt Count (150-400) X10^3/uL Neut % (Auto) (50-75) % Lymph % (Auto) (25-40) % [place] % (Auto) (3-14) % Eos % (Auto) (2-4) % Baso % (Auto) (0-2) % Neut # (Auto) (0913-7993) /uL Lymph # (Auto) (4565-1830) /uL [place] # (Auto) (0-900) /uL Eos # (Auto) (0-450) /uL Baso # (Auto) (0-100) /uL PT (10.1-12.7) SECONDS INR (0.9-1.3) APTT (26.4-36.2) SECONDS Sodium (137-145) mmol/L Potassium (3.4-5.1) mmol/L Chloride (98-107) mmol/L Carbon Dioxide (22-32) mmol/L BUN (7-17) mg/dL Creatinine (0.52-1.04) mg/dL Estimated GFR (>60) mL/min BUN/Creatinine Ratio (6-22) Glucose (70-100) mg/dL Calcium (8.4-10.2) mg/dL Total Bilirubin (0.2-1.3) mg/dL AST (14-36) IU/L ALT (<35) IU/L Alkaline Phosphatase (38-126) U/L Total Creatine Kinase (30-135) U/L CK-MB (CK-2) CK-MB (CK-2) Rel Index Troponin I (0.01-0.034) ng/mL NT-Pro-B Natriuret Pep 86 (<125) pg/mL Total Protein (6.3-8.2) g/dL Albumin (3.5-5.0) g/dL Globulin (1.7-4.1) g/dL Albumin/Globulin Ratio (1.0-2.8) Lipase (23-300) U/L COVID-19 PCR Negative (Negative) Imaging Data Chest x-ray: Radiologist's Impression: [address] [address] XRay Report Signed Patient: Elba YeagerMR#: [id number] : 1970Acct:[id number] Age/Sex: 48 / FDate of Service: 10/17/19 Loc: ED Accession Number: [id number] Procedure: XR chest 2V Ordering Provider: Jose Armando Csasidy MD PROCEDURE: XR CHEST 2V INDICATIONS: chest pain TECHNIQUE: 2 views of the chest were acquired. COMPARISON: [facility], , XR CHEST 1V, 11/25/2018, 20:00. FINDINGS: Surgical changes and devices: None. Lungs and pleura: Lungs are clear. No pleural effusions or pneumothorax. Mediastinum: Central vasculature is mildly prominent and indistinct. Heart size is normal. Bones and chest wall: No suspicious bony abnormalities. Soft tissues appear unremarkable. IMPRESSION: 1. Findings suggest central venous congestion. Correlate with BNP. Dictated by: Deirdre Yusuf M.D. on 10/17/2019 at 17:33 Approved by: Deirdre Yusuf M.D. on 10/17/2019 at 17:34 ECG Data Attestation: I personally reviewed and interpreted this ECG as follows: Interpretation: Normal sinus rhythm, ventricular rate 64, no ST elevation or depression <Kelly Dutta MD - Last Filed: 10/18/19 23:52> Lab Data Labs: Lab Results 10/17/19 10/17/19 10/17/19 Range/Units 17:05 17:05 17:05 WBC 8.0 (4.5-11.0) X10^3/uL RBC 4.30 (4.0-5.2) X10^6/uL Hgb 12.8 (12.0-16.0) g/dL Hct 37.8 (36-46) % MCV 87.9 (80-100) fL MCH 29.8 (26-34) PG MCHC 34.0 (30-36) % RDW 13.6 (11.6-14.8) % Plt Count 224 (150-400) X10^3/uL Neut % (Auto) 65.4 (50-75) % Lymph % (Auto) 26.8 (25-40) % [place] % (Auto) 6.3 (3-14) % Eos % (Auto) 1.0 L (2-4) % Baso % (Auto) 0.5 (0-2) % Neut # (Auto) 5200 (1300-8948) /uL Lymph # (Auto) 2100 (4480-1168) /uL [place] # (Auto) 500 (0-900) /uL Eos # (Auto) 100 (0-450) /uL Baso # (Auto) 0 (0-100) /uL PT 11.7 (10.1-12.7) SECONDS INR 1.0 (0.9-1.3) APTT 38 H D (26.4-36.2) SECONDS Sodium 138 (137-145) mmol/L Potassium 3.8 (3.4-5.1) mmol/L Chloride 102 (98-107) mmol/L Carbon Dioxide 28 (22-32) mmol/L BUN 11 (7-17) mg/dL Creatinine 0.67 (0.52-1.04) mg/dL Estimated GFR > 60.0 (>60) mL/min BUN/Creatinine Ratio 16.4 (6-22) Glucose 142 H (70-100) mg/dL Calcium 9.6 (8.4-10.2) mg/dL Total Bilirubin 0.4 (0.2-1.3) mg/dL AST 31 (14-36) IU/L ALT 39 H (<35) IU/L Alkaline Phosphatase 74 (38-126) U/L Total Creatine Kinase 84 (30-135) U/L CK-MB (CK-2) TNP CK-MB (CK-2) Rel Index TNP Troponin I < 0.012 (0.01-0.034) ng/mL NT-Pro-B Natriuret Pep (<125) pg/mL Total Protein 7.4 (6.3-8.2) g/dL Albumin 4.6 (3.5-5.0) g/dL Globulin 2.8 (1.7-4.1) g/dL Albumin/Globulin Ratio 1.6 (1.0-2.8) Lipase 68 (23-300) U/L COVID-19 PCR (Negative) 10/17/19 10/17/19 Range/Units 18:11 19:15 WBC (4.5-11.0) X10^3/uL RBC (4.0-5.2) X10^6/uL Hgb (12.0-16.0) g/dL Hct (36-46) % MCV (80-100) fL MCH (26-34) PG MCHC (30-36) % RDW (11.6-14.8) % Plt Count (150-400) X10^3/uL Neut % (Auto) (50-75) % Lymph % (Auto) (25-40) % One[place] % (Auto) (3-14) % Eos % (Auto) (2-4) % Baso % (Auto) (0-2) % Neut # (Auto) (7602-6476) /uL Lymph # (Auto) (4210-3461) /uL [place] # (Auto) (0-900) /uL Eos # (Auto) (0-450) /uL Baso # (Auto) (0-100) /uL PT (10.1-12.7) SECONDS INR (0.9-1.3) APTT (26.4-36.2) SECONDS Sodium (137-145) mmol/L Potassium (3.4-5.1) mmol/L Chloride (98-107) mmol/L Carbon Dioxide (22-32) mmol/L BUN (7-17) mg/dL Creatinine (0.52-1.04) mg/dL Estimated GFR (>60) mL/min BUN/Creatinine Ratio (6-22) Glucose (70-100) mg/dL Calcium (8.4-10.2) mg/dL Total Bilirubin (0.2-1.3) mg/dL AST (14-36) IU/L ALT (<35) IU/L Alkaline Phosphatase (38-126) U/L Total Creatine Kinase (30-135) U/L CK-MB (CK-2) CK-MB (CK-2) Rel Index Troponin I (0.01-0.034) ng/mL NT-Pro-B Natriuret Pep 86 (<125) pg/mL Total Protein (6.3-8.2) g/dL Albumin (3.5-5.0) g/dL Globulin (1.7-4.1) g/dL Albumin/Globulin Ratio (1.0-2.8) Lipase (23-300) U/L COVID-19 PCR Negative (Negative) Discharge Plan Departure Patient Disposition: Admitted as Observation Clinical Impression: Chest pain Qualifiers: Chest pain type: unspecified Qualified Code(s): R07.9 - Chest pain, unspecified Discharge Date/Time: 10/17/19 20:15 Instructions: Angina Referrals: Roxanna Rasmussen ARNP [Primary Care Provider] - Mary Sadler MD [Physician] - Admit Date/Time: 10/17/19 20:04 Admit Provider: Mary Sadler
[2019-10-17 18:28] LABS: NT-proBNP (BNP-Adult 18+) 86 pg/mL (<125)
[2019-10-17] MEDS: NITROGLYCERIN OINT 1 INCH/GM OINT...G. TOP (19:02)
--- NOTE | 2019-10-17 19:18 | PC.NURSE ---
Patient stated symptoms started this morning when she took her BP and it was high for her. Reports pressure/pain in left side of chest that ran down into left arm and weakness. Patient denies SOB.
[2019-10-17 20:24] LABS: COVID19 -Nasal RAPID Negative (Negative)
[2019-10-17] MEDS: SODIUM CHLORIDE 0.9% 1,000 ML 125 ML IV (22:04)
--- NOTE | 2019-10-17 22:19 | PC.NURSE ---
Addendum entered by Marisa Kat R.N. 10/17/19 23:21: I notified Dr Sadler of need for clarification of Lisinopril home med, Dr Sadler said she can take her own pill of lisinopril tonight, which I then had the patient do, and then I locked 3 pill bottles (from patient's purse) in the patient med separator tender. Dr Sadler gave me orders for troponin q8 x 2, and for ADA diet with no caffeine in case of cardiac stress test in AM. NS infusing at 125 ml/hr to RAC with no difficulty. Patient aware of new orders, labs, diet, etc. Denies other needs/questions tonight. Original Note: Admit note: Alisa brought up from ER to acute care room 222, VS are stable. She reports dull chest pain, denies further pain or weakness to LUE. Denies nausea or SOB. On Tele, rhythym is sinus. Upon auscultation, HR regular except for few PVC's. Nitro paste on left upper chest. 1/2 sandwich given along with other snacks, CBG prior to meal was 162. Pt reports took all her meds today except for Lisinopril which she takes at bedtime. She told me the ER physician told her it was OK to take her own Lisinopril, but during admission process I explained IH protocol and told her not to take any medications until I spoke to Dr Sadler. She agrees to this plan. Ambulated to BR, voided. Gait steady, low fall precautions. oriented to call button & hospital room, encouraged to call staff if she has questions/concerns.
[2019-10-18 00:27] VITALS: BP 138/73; PULSE 69; RESP 18; TEMP 36.8; O2SAT 96
[2019-10-18 01:30] LABS: Creatine Kinase 65 U/L (30-135)
[2019-10-18 01:42] LABS: Troponin I < 0.012 ng/mL (0.01-0.034)
[2019-10-18 04:00] VITALS: BP 132/63; PULSE 53; RESP 18; TEMP 36.1; O2SAT 96
[2019-10-18] MEDS: METFORMIN HCL 500 MG TABLET 1000 MG PO ×2 (08:29→16:55)
[2019-10-18 08:40] VITALS: BP 140/83; PULSE 67; RESP 18; TEMP 36.8; O2SAT 99
--- NOTE | 2019-10-18 08:48 | DI.NM.S_ITS ---
PROCEDURE: NM BANG PERF SPECT SINGLE STUDY Exercise myocardial perfusion SPECT with gated imaging and ejection fraction RADIOPHARMACEUTICAL: 26.6 mCi Tc-99m sestamibi IV at peak exercise. INDICATIONS: chest pain TECHNIQUE: Radiopharmaceutical was injected at peak stress test. SPECT images were obtained, with perfusion images in short axis, horizontal long axis, and vertical long axis views. Gated images were reviewed using [employer] software. COMPARISON: None. CARDIAC STRESS: A standard [place] treadmill exercise tolerance test was performed by the patient under the supervision of an attending staff. The patient exercised for 9 minutes and 27 seconds; functional aerobic impairment (IVA) is -13%. Hemodynamic data: There is normal blood pressure and heart response to exercise. Patient achieved 98% of maximum predicted heart rate. Symptoms: Patient denied anginal chest pain during exercise. EKG: No diagnostic changes of ischemia; no ectopy. FINDINGS: Raw data: There is good labeling of myocardium by radiotracer. No significant motion artifacts. Ckce-dn-jbxke ratio is 0.38 (normal is less than 0.38 for sestamibi tracer, and less than 0.50 for thallium tracer). Left ventricular function: Gated images demonstrate normal left ventricle wall thickening. No segmental wall motion abnormalities. Left ventricle end diastolic volume is 61 mL. Left ventricle stress ejection fraction is 97%; normal values are above 45%. Myocardial perfusion: There is normal distribution of activity in the left and right ventricular myocardium, without focal perfusion defects. IMPRESSION: Low risk, normal treadmill stress only nuclear stress test. 1) No perfusion evidence of ischemia or infarction. 2) Normal left ventricular size, wall motion, and systolic function (EF post stress over-calculated at 97%). 3) No ECG evidence of ischemia or infarction. 4) No angina during the study. 5) Good exercise tolerance (10.1 METs, IVA -13%). Target heart rate achieved. Appropriate BP response to exericse. 6) No prior nuclear stress test available for comparison. Dictated by: Kodi Ryan MD on 10/18/2019 at 17:37 Approved by: Kodi Ryan MD on 10/18/2019 at 17:41
--- NOTE | 2019-10-18 08:55 | DI.ECHO.S_ITS ---
[place] [facility]---------+ [facility] +---------+ : : [address] [place] [address] : : : : [id number] : : : : Phone: [phone] Echocardiogram Report + + :Name: LEANN RAWLS Study Date: 10/18/2019 Height: 65 in : :[facility] Weight: 209 lb : : Gender: Female BSA: 2.0 m2 : :: 1970 Age: 48 yrs BP: 131/74 mmHg: :Reason For Study: HEART MURMUR : :Ordering Physician: HOSPITALIST, : :JERRY Performed By: Esperanza Garrido : :Referring: PAOLA BREWER : + + Interpretation Summary The left ventricle is normal in size and wall thickness. Left ventricular systolic function is normal without focal wall motion abnormalities. The ejection fraction is estimated to be 60-65%. Left ventricular global longitudinal strain average is -18.9%. Diastolic parameters suggest probable normal left ventricular diastolic function and normal filling pressures. The right ventricle is normal in size and function. The right ventricular systolic pressure is estimated to be at least 23 mmHg based on an estimated right atrial pressure of 3 mm Hg. Both atria are normal in size. There is no significant valvular heart disease. The aortic root is normal size. Procedure: A two-dimensional transthoracic echocardiogram with color flow and Doppler was performed. The study quality was technically adequate. There is no prior echocardiogram noted for this patient. The patient was in sinus rhythm with heart rates between 64-71 bpm during the exam. Left Ventricle: The left ventricle is normal in size and wall thickness. Left ventricular systolic function is normal without focal wall motion abnormalities. Left ventricular global longitudinal strain average is -18.9%. The ejection fraction is estimated to be 60-65%. Diastolic parameters suggest probable normal left ventricular diastolic function and normal filling pressures. Right Ventricle: The right ventricle is normal in size and function. Atria: Both atria are normal in size. There is no Doppler evidence for an interatrial shunt. Mitral Valve: The mitral valve is normal in structure and function. There is no mitral regurgitation noted. Aortic Valve: The aortic valve is trileaflet. The aortic valve opens well. There is no aortic valve stenosis. No aortic regurgitation is present. Tricuspid Valve: The tricuspid valve is normal in structure and function. There is mild tricuspid regurgitation. The right ventricular systolic pressure is estimated to be at least 23 mmHg based on an estimated right atrial pressure of 3 mm Hg. Pulmonic Valve: The pulmonic valve is not well seen, but is grossly normal. There is a trace or physiologic amount of pulmonic regurgitation. There is no significant valvular heart disease. Great Vessels: The aortic root is normal size. The ascending aorta is at the upper limits of normal in size. The IVC is of normal diameter and collapses greater than 50% with a sniff. This suggests a low right atrial pressure of 3 mm Hg. Pericardium/ Pleura There is no pericardial effusion. There is no pleural effusion. MMode/2D Measurements & Calculations LVIDd: 4.5 cm LVOT diam: 2.0 cm LVIDs: 3.2 cm Ao root diam: 2.7 cm FS: 30.0 % asc Aorta Diam: 3.4 cm EPSS: 0.49 cm Ao Arch Diam (Prox Trans): 3.0 cm IVSd: 0.86 cm LVPWd: 0.88 cm LV dale. diameter/BSA (cm/m^2): 2.2 LV sys. diameter/BSA (cm/m^2): 1.6 LA A2 area: 17.1 cm2 RA long axis: 4.1 cm LA A4 area: 17.5 cm2 RA area: 12.3 cm2 LA length (vol): 4.9 cm RA vol: 31.5 ml LA vol: 51.9 ml RA : 15.6 ml/m2 LA vol index: 25.7 ml/m2 IVC diam: 1.2 cm RVD1 (basal): 3.3 cm TAPSE: 1.9 cm Doppler Measurements & Calculations Ao V2 max: 161.8 cm/sec LVOT Max Bala: 111.7 cm/sec Ao V2 mean: 105.0 cm/sec LV V1 max P.0 mmHg Ao max P.5 mmHg LV V1 VTI: 24.5 cm Ao mean P.2 mmHg JOSHUA(I,D): 2.3 cm2 Ao V2 VTI: 32.4 cm JOSHUA(V,D): 2.1 cm2 sev ratio: 0.76 JOSHUA indexed to BSA (cm^2/m^2): 1.1 MV E max bala: 72.9 cm/sec TR max bala: 223.8 cm/sec MV A max bala: 62.5 cm/sec TR max P.0 mmHg MV E/A: 1.2 PA V2 max: 89.3 cm/sec Med Peak E' Bala: 11.0 cm/sec PA V2 mean: 56.9 cm/sec E/E' med: 6.6 PA mean P.5 mmHg Lat Peak E' Bala: 18.0 cm/sec PA pr(Accel): 46.5 mmHg E/E' lat: 4.0 E/e' average: 5.3 MV dec time: 0.17 sec SV(LVOT): 73.6 ml Reading Physician:05:35 PM
[2019-10-18 09:38] LABS: Creatine Kinase 64 U/L (30-135)
[2019-10-18 09:52] LABS: Troponin I < 0.012 ng/mL (0.01-0.034)
--- NOTE | 2019-10-18 11:21 | PC.NURSE ---
Day shift: Pt off unit for stress test at approx 1115.
[2019-10-18 12:00] VITALS: BP 133/65; RESP 93; TEMP 36.6; O2SAT 92
--- NOTE | 2019-10-18 12:51 | PC.NURSE ---
Day shift: Pt back on AC unit at approx 1250. Pt reports that she tolerated the stress test well and had no chest pain. Echo today at 1630 and Pt is aware. She has been calm and cooperative and pain free. Pt is having a shower now. Will place back on tele after. Has been independent in room and very steady on her feet.
--- NOTE | 2019-10-18 15:12 | CM.DANOTE ---
Discharge Planning/Care Management DCP: assessement: case received and discussed in Team Rounds. Was updated later by RN Teresa and UR ANA Lowry. Pt chris 48 year old female who admitted to care of Dr. Sadler. PCP: Roxanna Rasmussen Payer: Lydia ECHO and stress test were oredered. Pt has as been up independently in her room and is waiting for Dr. Sadler to see her this evening after clinic. She hopes to be able to d/c home today. P: will check in tomorrow if pt is still here and follow prn for any d/c needs CM Discharge Assessment Start: 10/18/19 15:11 Freq: Status: Active Protocol: Document 10/18/19 15:11 ITV (Rec: 10/18/19 15:11 ITV [id number]) Discharge Planning Assessment Advance Directives? No History Provided By Medical Record Prior Living Arrangements House Household Members spouse,children Independent with ADL's Yes Is patient alert and oriented? Yes Review Status In Process
[2019-10-18 15:55] VITALS: BP 131/74; PULSE 79; RESP 18; TEMP 37.1; O2SAT 95
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
--- NOTE | 2019-10-18 18:55 | PC.NURSE ---
Discharge Note Patient A&O, VSS, RA. No no complaints of chest pain/shortness of breath. Discharge/follow-up instructions given to patient. No questions or concerns. All belongings packed and given to patient. Patient taken down via wheelchair to personal vehicle.
== END 2019-10-18 18:30 | disposition home or self-care (01) ==
LOC: ED 19:34 → AC 20:05
PROVIDERS: Admitting Provider Family Medicine; Emergency Provider Emergency Medicine; PCP Nurse Practitioner Family; Visit Provider Family Medicine
DX: R07.9 Chest pain, unspecified (principal); E11.9 Type 2 diabetes mellitus without complications; I10 Essential (primary) hypertension; Z79.84 Long term (current) use of oral hypoglycemic drugs; E78.5 Hyperlipidemia, unspecified; E66.9 Obesity, unspecified; R01.1 Cardiac murmur, unspecified; Z11.59 Encounter for screening for other viral diseases
CPT/HCPCS: 36415; 71046; 78451; 80053; 82550; 82962; 83690; 83880; 84484; 85025; 85610; 85730; 87635; 93005; 93306; 99284; G0378; A9502

== ENCOUNTER → 2021-09-25 08:57 | Outpatient (CLI) | payer OTHER, SELFPAY ==
[2019-10-17 21:06] VITALS: BMI 34.7
[2021-09-25 09:30] LABS: Add Manual Diff / Slide Review NO; Basophils Absolute Auto 0 /uL (0-100); Basophils Percent Auto 0.4 % (0-2); Eosinophils Absolute Auto 100 /uL (0-450); Eosinophils Percent Auto 1.3 % (2-4); Hematocrit 37.9 % (36-46); Hemoglobin 12.7 g/dL (12.0-16.0); Lymphocytes Absolute Auto 2300 /uL (1100-4500); Lymphocytes Percent Auto 35.6 % (25-40); Mean Corpuscular HGB Conc 33.5 % (30-36); Mean Corpuscular Hemoglobin 29.7 PG (26-34); Mean Corpuscular Volume 88.4 fL (80-100); Monocytes Absolute Auto 400 /uL (0-900); Monocytes Percent Auto 6.7 % (3-14); Neutrophils Absolute Auto 3600 /uL (1500-7000); Platelet Count 240 X10^3/uL (150-400); Red Blood Cell Count 4.29 X10^6/uL (4.0-5.2); Red Cell Distribution Width 13.9 % (11.6-14.8); White Blood Cell Count 6.4 X10^3/uL (4.5-11.0)
[2021-09-25 09:42] LABS: Hemoglobin A1C% w Est Avg Glu 7.7 % (4.0-6.0)
[2021-09-25 09:43] LABS: Alanine Aminotransferase 32 IU/L (<35); Albumin 4.3 g/dL (3.5-5.0); Albumin Globulin Ratio 1.8 (1.0-2.8); Alkaline Phosphatase 69 U/L (38-126); Aspartate Aminotransferase 25 IU/L (14-36); BUN Creatinine Ratio 20.3 (6-22); Bilirubin Total 0.4 mg/dL (0.2-1.3); Blood Urea Nitrogen 15 mg/dL (7-17); Calcium 8.9 mg/dL (8.4-10.2); Carbon Dioxide 28 mmol/L (22-32); Chloride 104 mmol/L (98-107); Cholesterol 206 mg/dL (140-199); Estimated Glomerular Filt Rate > 60 mL/min (>60); Globulin 2.4 g/dL (1.7-4.1); Glucose 153 mg/dL (70-100); HDL Cholesterol 45 mg/dL (40-60); HEMOLYSIS < 15 (0-50); LDL Cholesterol Calculated 130 mg/dL (<100); Potassium 3.9 mmol/L (3.4-5.1); Sodium 138 mmol/L (137-145); Total Protein 6.7 g/dL (6.3-8.2); Triglycerides 157 mg/dL (35-150)
[2021-09-25 10:13] LABS: TSH w/ Reflex to FT4 2.77 uIU/mL (0.47-4.68)
[2021-09-25 10:48] LABS: Creatinine Urine Random 237.2 mg/dL
[2021-09-25 10:52] LABS: Microalbumin Urine Random 1.2 mg/dL (0-1.6)
== END ==
PROVIDERS: PCP Nurse Practitioner Family; Referring Provider Internal Medicine; Visit Provider Internal Medicine
DX: E11.9 Type 2 diabetes mellitus without complications (principal); I10 Essential (primary) hypertension
CPT/HCPCS: 36415; 80053; 80061; 82043; 82570; 83036; 84443; 85025

== ENCOUNTER 2022-05-08 09:44 | Emergency (ER) | payer OTHER, SELFPAY ==
[2019-10-17 21:06] VITALS: BMI 34.7
[2022-05-08] VITALS (10 sets, daily range): BP systolic 135–209; BP diastolic 64–87; PULSE 57–85; RESP 8–16; TEMP 36.2; O2SAT 97–100; BMI 33.3
--- NOTE | 2022-05-08 10:28 | ED.GENADULT ---
HPI - General Adult General Chief complaint: Diabetic Problem Stated complaint: allergic reaction to medication Time Seen by Provider: 05/08/22 10:01 History of Present Illness HPI narrative: Patient is a 51-year-old female history of hypertension diabetes presenting today with a variety of complaints. She was recently started on metformin and Januvia to help with her diabetes. She says previously her glucose was 148 150s however over the last few days been it at 200 and highest 250 this morning. She has also been having some chest pain she says she said chest pain off and on for couple of months. However when she checked her sugar this morning and it was 250 she had worsening chest pain radiating down her left arm. He is no longer having chest she denies any shortness breath. He feels a little nauseous. She is quite confused about why her glucose is going up when she just started diabetic medication. She denies fever or chills. No painful or frequent urination. She reports that she is eating less she is trying hard to get her diabetes under control. Related Data Previous Rx's Medication Instructions Recorded lisinopril 20 mg tablet 20 mg PO DAILY #90 tabs 06/29/21 empagliflozin 10 mg tablet 10 mg PO DAILY #90 tabs 04/21/22 (Jardiance) metformin 500 mg tablet 1,000 mg PO BID #90 tabs 04/21/22 Allergies Allergy/AdvReac Type Severity Reaction Status Date / Time Sulfa (Sulfonamide Allergy Mild HIVES Verified 04/21/22 13:46 Antibiotics) [SULFA (SULFONAMIDE ANTIBIOTICS)] atorvastatin [From Lipitor] Allergy Verified 04/21/22 13:46 Review of Systems Review of Systems ROS Unobtainable: All systems reviewed & are unremarkable except as noted in HPI and below Patient History Medical History Essential hypertension (~2014) Menopausal syndrome Mixed hyperlipidemia Obesity (BMI 30.0-34.9) Katherin-menopausal Type 2 diabetes mellitus without complications (~2014) Surgical History Anesthesia History of section Family History Father Diabetes mellitus Mother Diabetes mellitus Social History 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 HEENT: Head atraumatic,EOMI, pupils reactive, face symmetric, moist mucous membranes CARDIOVASCULAR: Regular rate and rhythm without murmurs, rubs or gallops. RESPIRATORY: Breath sounds equal bilaterally, no wheezes rales or rhonchi. ABDOMEN: Soft, nontender. Normoactive bowel sounds all 4 quadrants. No guarding or rebound. Right upper quadrant pain EXTREMITIES: Normal range of motion, no clubbing or edema. Neurovascularly intact NEUROLOGICAL: Alert and oriented x4.Normal gait and speech. SKIN: Warm, dry, no laceration, no petechiae, no rashes or lesions. Course Orders Ordered: ED Orders 05/08/22 10:35 XR chest 1V Stat 05/08/22 11:00 Complete Blood Count AUTO DIFF Stat Comprehensive Metabolic Panel Stat Lipase Stat Troponin & CK Cardiac Panel Stat 05/08/22 11:22 EKG-12 Lead Stat Discontinued Medications Sodium Chloride (Normal Saline 0.9%) 1,000 mls @ 1,000 mls/hr IV BOLUS ONE Stop: 05/08/22 11:34 Last Infusion: 05/08/22 12:20 Dose: 0 mls/hr Documented By: Admin: 05/08/22 11:07 Dose: 1,000 mls/hr Documented By: ANNE Vital Signs Vital signs: Vital Signs - 8 hr 05/08/22 09:49 05/08/22 09:48 05/08/22 09:49 Temperature 97.1 F L Pulse Rate 80 85 Respiratory Rate 16 Blood Pressure 209/87 H 209/87 H Pulse Oximetry 99 100 Oxygen Delivery Method Room Air 05/08/22 09:51 05/08/22 09:51 05/08/22 10:00 Temperature Pulse Rate 72 Respiratory Rate Blood Pressure 156/67 H 141/65 H Pulse Oximetry 100 Oxygen Delivery Method 05/08/22 10:00 05/08/22 10:30 05/08/22 10:30 Temperature Pulse Rate 73 74 Respiratory Rate 16 Blood Pressure 141/67 H Pulse Oximetry 99 98 Oxygen Delivery Method Room Air 05/08/22 11:00 05/08/22 11:00 05/08/22 11:30 Temperature Pulse Rate 67 Respiratory Rate Blood Pressure 143/71 H 135/64 Pulse Oximetry 97 Oxygen Delivery Method 05/08/22 11:30 05/08/22 11:45 05/08/22 11:45 Temperature Pulse Rate 65 61 Respiratory Rate 11 L 12 Blood Pressure 156/67 H Pulse Oximetry 99 100 Oxygen Delivery Method 05/08/22 12:00 05/08/22 12:00 05/08/22 12:30 Temperature Pulse Rate 57 L Respiratory Rate 11 L Blood Pressure 147/65 H 143/67 H Pulse Oximetry 99 Oxygen Delivery Method Room Air 05/08/22 12:30 Temperature Pulse Rate 63 Respiratory Rate 8 L Blood Pressure Pulse Oximetry 99 Oxygen Delivery Method Medical Decision Making Lab Data 05/08/22 11:00 05/08/22 11:00 Labs: Lab Results 05/08/22 05/08/22 Range/Units 11:00 11:00 WBC 5.3 (4.5-11.0) X10^3/uL RBC 4.24 (4.0-5.2) X10^6/uL Hgb 12.6 (12.0-16.0) g/dL Hct 37.5 (36-46) % MCV 88.4 (80-100) fL MCH 29.7 (26-34) PG MCHC 33.5 (30-36) % RDW 14.0 (11.6-14.8) % Plt Count 246 (150-400) X10^3/uL Neut % (Auto) 57.1 (50-75) % Lymph % (Auto) 33.0 (25-40) % [place] % (Auto) 8.2 (3-14) % Eos % (Auto) 0.9 L (2-4) % Baso % (Auto) 0.8 (0-2) % Neut # (Auto) 3000 (1017-3232) /uL Lymph # (Auto) 1700 (6498-6429) /uL [place] # (Auto) 400 (0-900) /uL Eos # (Auto) 0 (0-450) /uL Baso # (Auto) 0 (0-100) /uL Sodium 139 (137-145) mmol/L Potassium 4.0 (3.4-5.1) mmol/L Chloride 102 (98-107) mmol/L Carbon Dioxide 27 (22-32) mmol/L BUN 13 (7-17) mg/dL Creatinine 0.64 (0.52-1.04) mg/dL Estimated GFR > 60 (>60) mL/min BUN/Creatinine Ratio 20.3 (6-22) Glucose 129 H (70-100) mg/dL Calcium 9.0 (8.4-10.2) mg/dL Total Bilirubin 0.2 (0.2-1.3) mg/dL AST 23 (14-36) IU/L ALT 29 (<35) IU/L Alkaline Phosphatase 57 (38-126) U/L Total Creatine Kinase 72 (30-135) U/L CK-MB (CK-2) TNP CK-MB (CK-2) Rel Index TNP Troponin I < 0.012 (0.01-0.034) ng/mL Total Protein 7.1 (6.3-8.2) g/dL Albumin 4.3 (3.5-5.0) g/dL Globulin 2.8 (1.7-4.1) g/dL Albumin/Globulin Ratio 1.5 (1.0-2.8) Lipase 55 (23-300) U/L Point of Care Testing Glucose POC 249 Urine Dip Bedside Urine Glucose 1000 mg/dl Bedside Urine Bilirubin - Negative Bedside Urine Ketone - Negative Urine Specific [place] 1.010 Bedside Urine Occult Blood - Negative Bedside Urine pH 6.0 Bedside Urine Protein - Negative Bedside Urine Urobilinogen - Negative Bedside Urine Nitrite - Negative Bedside Urine Leukocytes - Negative Esterase Point of care testing: Point of Care Testing Glucose POC 249 Urine Dip Bedside Urine Glucose 1000 mg/dl Bedside Urine Bilirubin - Negative Bedside Urine Ketone - Negative Urine Specific [place] 1.010 Bedside Urine Occult Blood - Negative Bedside Urine pH 6.0 Bedside Urine Protein - Negative Bedside Urine Urobilinogen - Negative Bedside Urine Nitrite - Negative Bedside Urine Leukocytes - Negative Esterase Imaging Data Chest x-ray: Radiologist's Impression: Signed Patient: Elba Yeager MR#: [id number] : 1970 Acct:[id number] Age/Sex: 51 / F Date of Service: 05/08/22 Loc: ED Accession Number: [id number] ?? Procedure: XR chest 1V Ordering Provider: Jennifer Magallanes D.O. PROCEDURE:? XR CHEST 1V ? INDICATIONS:? chest pain ? TECHNIQUE:? One view of the chest was acquired.? ? COMPARISON:? [facility], CR, XR CHEST 2V, 05/04/2018, 11:49.? [facility], CR, XR CHEST 1V, 11/25/2018, 20:00.? [facility], CR, XR CHEST 2V, 10/17/2019, 17:05. ? FINDINGS:? ? Surgical changes and devices:? None.? ? Lungs and pleura:? On this semiupright portable chest examination, no large pneumothorax or large pleural effusions are seen.? No focal infiltrates are seen.? ? Mediastinum:? Mediastinal contours appear normal.? Heart size is normal.? ? Bones and chest wall:? No suspicious bony lesions.? Overlying soft tissues appear unremarkable.? IMPRESSION:? ? Portable chest within normal limits. ? ? ? Dictated by: Iker Wilkerson M.D. on 05/08/2022 at 9:55 ? ? ECG Data Interpretation: Normal sinus rhythm rate 63 ME interval 192 QRS 88 QTC region 95 T-wave inversion noted in lead 3 only similar to previous EKG in 2019 MDM Narrative Medical decision making narrative: Patient presents with right of symptoms elevated glucose and chest discomfort after starting Jardiance and metformin. Side effects of Januvia can include UTI, urination frequency dyslipidemia some nausea upper respiratory infection. She has no evidence of infection today. Chest x-ray is negative no leukocytosis urinalysis does not show any sign of infection. No evidence of DKA, electrolytes are within normal limits. Glucose on serum is 129. EKG chest x-ray and troponin are all negative. Symptoms may be related to side effects of medication. Recommend she continue medications until she talked with PCP. It maybe that she is not tolerating it. She previously did not tolerate other diabetic medications. Discharge Plan Departure Patient Disposition: Home Clinical Impression: Drug reaction Instructions: DI for Adverse Drug Reaction -- Other Activity Restrictions/Additional Instructions: *You have been diagnosed with drug reaction *What to do: At this time there is no evidence of infection. Your symptoms may be related to side effect of your new medication. Please talk with your PCP about this. Glucose was 129 today on blood *Continue to take medications as directed *Follow up with your primary care provider in 2-3 days or call [phone] *Return to ER if you should have fever chills worsening chest pain or any new, worsening or concerning symptoms Prescriptions: No Action metformin 500 mg tablet 1,000 mg PO BID Qty: 90 2RF lisinopril 20 mg tablet 20 mg PO DAILY Qty: 90 3RF Jardiance 10 mg tablet 10 mg PO DAILY Qty: 90 3RF Referrals: Adrian Elizondo MD [Primary Care Provider] - Stand Alone Forms: Patient Portal/API
--- NOTE | 2022-05-08 10:35 | DI.RAD.S_ITS ---
PROCEDURE: XR CHEST 1V INDICATIONS: chest pain TECHNIQUE: One view of the chest was acquired. COMPARISON: [facility], CR, XR CHEST 2V, 05/04/2018, 11:49. [facility], CR, XR CHEST 1V, 11/25/2018, 20:00. [facility], CR, XR CHEST 2V, 10/17/2019, 17:05. FINDINGS: Surgical changes and devices: None. Lungs and pleura: On this semiupright portable chest examination, no large pneumothorax or large pleural effusions are seen. No focal infiltrates are seen. Mediastinum: Mediastinal contours appear normal. Heart size is normal. Bones and chest wall: No suspicious bony lesions. Overlying soft tissues appear unremarkable. IMPRESSION: Portable chest within normal limits. Dictated by: Iker Wilkerson M.D. on 05/08/2022 at 9:55 Approved by: Iker Wilkerson M.D. on 05/08/2022 at 9:55
[2022-05-08 11:05] LABS: Add Manual Diff / Slide Review NO; Basophils Absolute Auto 0 /uL (0-100); Basophils Percent Auto 0.8 % (0-2); Eosinophils Absolute Auto 0 /uL (0-450); Eosinophils Percent Auto 0.9 % (2-4); Hematocrit 37.5 % (36-46); Hemoglobin 12.6 g/dL (12.0-16.0); Lymphocytes Absolute Auto 1700 /uL (1100-4500); Mean Corpuscular HGB Conc 33.5 % (30-36); Mean Corpuscular Hemoglobin 29.7 PG (26-34); Mean Corpuscular Volume 88.4 fL (80-100); Monocytes Absolute Auto 400 /uL (0-900); Monocytes Percent Auto 8.2 % (3-14); Neutrophils Absolute Auto 3000 /uL (1500-7000); Neutrophils Percent Auto 57.1 % (50-75); Platelet Count 246 X10^3/uL (150-400); Red Blood Cell Count 4.24 X10^6/uL (4.0-5.2); White Blood Cell Count 5.3 X10^3/uL (4.5-11.0)
[2022-05-08] MEDS: SODIUM CHLORIDE 0.9% 1,000 ML 1000 ML IV (11:07)
[2022-05-08 11:15] LABS: Alanine Aminotransferase 29 IU/L (<35); Albumin 4.3 g/dL (3.5-5.0); Albumin Globulin Ratio 1.5 (1.0-2.8); Alkaline Phosphatase 57 U/L (38-126); Aspartate Aminotransferase 23 IU/L (14-36); BUN Creatinine Ratio 20.3 (6-22); Bilirubin Total 0.2 mg/dL (0.2-1.3); Blood Urea Nitrogen 13 mg/dL (7-17); Carbon Dioxide 27 mmol/L (22-32); Chloride 102 mmol/L (98-107); Creatine Kinase 72 U/L (30-135); Estimated Glomerular Filt Rate > 60 mL/min (>60); Globulin 2.8 g/dL (1.7-4.1); Glucose 129 mg/dL (70-100); HEMOLYSIS < 15 (0-50); Lipase 55 U/L (23-300); Sodium 139 mmol/L (137-145); Total Protein 7.1 g/dL (6.3-8.2)
[2022-05-08 11:26] LABS: Troponin I < 0.012 ng/mL (0.01-0.034)
== END 2022-05-08 12:48 | disposition home or self-care (01) ==
PROVIDERS: Emergency Provider Emergency Medicine; PCP Internal Medicine
DX: R07.9 Chest pain, unspecified (principal); T38.3X5A Adverse effect of insulin and oral hypoglycemic [antidiabetic] drugs, initial encounter
CPT/HCPCS: 36415; 71045; 80053; 81003; 82550; 82962; 83690; 84484; 85025; 93005; 93010; 96360; 99284

== ENCOUNTER → 2023-01-31 14:37 | Outpatient (CLI) | payer OTHER, SELFPAY ==
[2019-10-17 21:06] VITALS: BMI 34.7
[2023-01-31 15:36] LABS: Aspartate Aminotransferase 21 IU/L (14-36); BUN Creatinine Ratio 19.7 (6-22); Blood Urea Nitrogen 13 mg/dL (7-17); Calcium 10.6 mg/dL (8.4-10.2); Carbon Dioxide 29 mmol/L (22-32); Chloride 99 mmol/L (98-107); Cholesterol 235 mg/dL (140-199); Estimated Glomerular Filt Rate > 60 mL/min (>60); Glucose 108 mg/dL (70-100); HDL Cholesterol 54 mg/dL (40-60); HEMOLYSIS < 15 (0-50); LDL Cholesterol Calculated 145 mg/dL (<100); Potassium 4.4 mmol/L (3.4-5.1); Sodium 139 mmol/L (137-145); Triglycerides 178 mg/dL (35-150)
[2023-01-31 15:38] LABS: Hemoglobin A1C% w Est Avg Glu 7.6 % (4.0-6.0)
[2023-01-31 15:49] LABS: Creatinine Urine Random 17.4 mg/dL
[2023-01-31 16:00] LABS: Microalbumin Urine Random < 0.6 mg/dL (0-1.6)
== END ==
PROVIDERS: PCP Internal Medicine; Referring Provider Internal Medicine; Visit Provider Internal Medicine
DX: E78.2 Mixed hyperlipidemia (principal); I10 Essential (primary) hypertension; E11.9 Type 2 diabetes mellitus without complications
CPT/HCPCS: 36415; 80048; 80061; 82043; 82570; 83036; 84450

== ENCOUNTER 2023-05-26 08:22 | Day surgery (SDC) | payer OTHER, SELFPAY ==
[2019-10-17 21:06] VITALS: BMI 34.7
[2023-05-26] MEDS: LACTATED RINGERS 1,000 ML 42 ML IV (09:40)
[2023-05-26] MEDS: FLEETS ENEMA 1 EACH PR (09:41)
--- NOTE | 2023-05-26 09:43 | P.HP_ITS ---
History of Present Illness History of Present Illness Date Patient Seen: 05/26/23 Time Patient Seen: 09:43 Chief complaint: SDC Narrative: Ailsa is a 52-year-old woman who is here for colonoscopy. She has never had 1 before. 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[employer], two children (mother Beena Patel) household members: spouse and children Smoking Status: Never smoker alcohol intake: current Meds Home Medications and Allergies Home Medications Medication Instructions Recorded Confirmed Type lisinopril 20 mg tablet 20 mg PO DAILY #90 tabs 06/29/22 05/26/23 Rx metformin 500 mg tablet 1,000 mg (2 x 500 mg) PO BID #180 06/30/22 05/26/23 Rx tabs empagliflozin 10 mg tablet 10 mg PO DAILY #90 tabs 05/02/23 05/26/23 Rx (Jardiance) ipratropium bromide 42 mcg (0.06 2 spray intranasal BID PRN allergy 05/23/23 05/26/23 Rx %) nasal spray symptoms #15 mL aspirin 81 mg capsule 81 mg PO DAILY 05/26/23 05/26/23 History Allergies Allergy/AdvReac Type Severity Reaction Status Date / Time Sulfa (Sulfonamide Allergy Mild HIVES Verified 05/26/23 09:30 Antibiotics) [SULFA (SULFONAMIDE ANTIBIOTICS)] atorvastatin [From Lipitor] Allergy Verified 05/26/23 09:30 Exam Const General: healthy appearing Assessment & Plan Assessment and plan (1) Colon cancer screening: Status: Acute Plan We reviewed the risks and benefits of colonoscopy for colon cancer screening and she would like to proceed.
[2023-05-26 09:44] VITALS: BP 128/74; PULSE 71; RESP 16; TEMP 36.3; O2SAT 97
--- NOTE | 2023-05-26 10:42 | PM.OP.COLON ---
Operative Date/Time/Diagnoses Date of procedure: 05/26/23 Time of procedure: 10:42 Pre-op diagnosis: Colon cancer screening Post-op diagnosis: same Procedure & Clinicians Study performed: Colonoscopy Same procedure as scheduled: Yes Surgeon: Paco Kaufman Procedure Notes Procedure in detail: Surgeon: Paco Kaufman MD Anesthesia: Jen Cannon D.O. Procedure: The patient was brought to the endoscopy suite, placed in left lateral decubitus position. The patient was connected to monitoring devices. A time-out was performed. Sedation was administered. Once the patient was adequately sedated, a digital rectal exam was performed and was normal. The scope was then inserted and advanced to the cecum where the appendiceal orifice was identified and photographed. The scope was then slowly withdrawn over greater than 6 minutes. The mucosa was thoroughly inspected. No abnormalities were found. The scope was retroflexed in the rectum. No abnormalities were seen. The scope was straightened and removed. The patient was awakened and brought to recovery. Scope withdrawal time: 8 minutes Sedation time: 11 minutes EBL: 0 Findings: Normal colon Post-procedure Recommendations: Colonoscopy in 10 years Disposition: PACU
[2023-05-26 10:43] VITALS: BP 95/61; PULSE 72; RESP 16; TEMP 36.2; O2SAT 97
[2023-05-26 10:48] VITALS: BP 109/66; PULSE 65; RESP 16; O2SAT 99
[2023-05-26 10:53] VITALS: BP 110/62; PULSE 68; RESP 16; O2SAT 99
[2023-05-26 10:57] VITALS: BP 118/71; PULSE 65; RESP 16; TEMP 36.2; O2SAT 100
== END 2023-05-26 11:13 | disposition home or self-care (01) ==
PROVIDERS: PCP Internal Medicine; Referring Provider Surgery; Visit Provider Surgery
PROC: 0DJD8ZZ Inspection of Lower Intestinal Tract, Via Natural or Artificial Opening Endoscopic (ICD-10-PCS; CPT 45378; principal; 2023-05-26 09:15)
DX: Z12.11 Encounter for screening for malignant neoplasm of colon (principal)
CPT/HCPCS: 45378; 82962; J2704

== ENCOUNTER → 2023-08-18 16:25 | Outpatient (CLI) | payer OTHER, SELFPAY ==
[2019-10-17 21:06] VITALS: BMI 34.7
[2023-08-18 18:51] LABS: BUN Creatinine Ratio 22.1 (6-22); Blood Urea Nitrogen 19 mg/dL (7-17); Calcium 9.2 mg/dL (8.4-10.2); Carbon Dioxide 28 mmol/L (22-32); Chloride 104 mmol/L (98-107); Estimated Glomerular Filt Rate > 60 mL/min (>60); Glucose 145 mg/dL (70-100); HEMOLYSIS 19 (0-50); Potassium 4.1 mmol/L (3.4-5.1); Sodium 139 mmol/L (137-145)
== END ==
PROVIDERS: PCP Internal Medicine; Referring Provider Internal Medicine; Visit Provider Internal Medicine
DX: E11.9 Type 2 diabetes mellitus without complications (principal)
CPT/HCPCS: 36415; 80048; 83036

== ENCOUNTER → 2024-02-07 16:10 | Outpatient (CLI) | payer OTHER, SELFPAY ==
[2019-10-17 21:06] VITALS: BMI 34.7
--- NOTE | 2024-02-07 16:12 | DI.RAD.S_ITS ---
PROCEDURE: XR CERVICAL SPINE 4V OR 5V INDICATIONS: left neck pain, remote history of trauma TECHNIQUE: 5 views of the cervical spine acquired. COMPARISON: None. FINDINGS: Bones: No fractures or dislocations to the C7 level. Oblique images demonstrate no bony foraminal stenoses. Moderate degenerative changes. Soft tissues: No prevertebral soft tissue swelling. IMPRESSION: Moderate degenerative changes. Dictated by: Maurice Thomas M.D. on 02/07/2024 at 23:40 Approved by: Maurice Thomas M.D. on 02/07/2024 at 23:41
[2024-02-07 17:16] LABS: Hemoglobin A1C% w Est Avg Glu 6.7 % (4.0-6.0)
[2024-02-07 17:31] LABS: BUN Creatinine Ratio 21.6 (6-22); Blood Urea Nitrogen 16 mg/dL (7-17); Calcium 9.7 mg/dL (8.4-10.2); Carbon Dioxide 27 mmol/L (22-32); Chloride 102 mmol/L (98-107); Cholesterol 244 mg/dL (140-199); Estimated Glomerular Filt Rate > 60 mL/min (>60); Glucose 101 mg/dL (70-100); HDL Cholesterol 62 mg/dL (40-60); HEMOLYSIS < 15 (0-50); LDL Cholesterol Calculated 120 mg/dL (<100); Potassium 4.1 mmol/L (3.4-5.1); Sodium 138 mmol/L (137-145); Triglycerides 308 mg/dL (35-150)
[2024-02-07 17:48] LABS: Creatinine Urine Random 54.54 mg/dL
[2024-02-07 17:54] LABS: Microalbumin Urine Random < 0.6 mg/dL (0-1.6)
== END ==
PROVIDERS: PCP Internal Medicine; Referring Provider Internal Medicine; Visit Provider Internal Medicine
DX: M47.812 Spondylosis without myelopathy or radiculopathy, cervical region (principal); E11.9 Type 2 diabetes mellitus without complications; E78.2 Mixed hyperlipidemia
CPT/HCPCS: 36415; 72050; 80048; 80061; 82043; 82570; 83036

== ENCOUNTER → 2024-08-08 08:59 | Outpatient (CLI) | payer OTHER, SELFPAY ==
[2019-10-17 21:06] VITALS: BMI 34.7
[2024-08-08 10:22] LABS: Hemoglobin A1C% w Est Avg Glu 6.4 % (4.0-6.0)
[2024-08-08 10:43] LABS: BUN Creatinine Ratio 23.1 (6-22); Blood Urea Nitrogen 18 mg/dL (7-17); Calcium 9.3 mg/dL (8.4-10.2); Carbon Dioxide 26 mmol/L (22-32); Chloride 100 mmol/L (98-107); Estimated Glomerular Filt Rate > 60 mL/min (>60); Glucose 147 mg/dL (70-99); HEMOLYSIS < 15 (0-50); Potassium 4.2 mmol/L (3.4-5.1); Sodium 137 mmol/L (137-145)
== END ==
PROVIDERS: PCP Internal Medicine; Referring Provider Internal Medicine; Visit Provider Internal Medicine
DX: E11.9 Type 2 diabetes mellitus without complications (principal)
CPT/HCPCS: 36415; 80048; 83036

== ENCOUNTER → 2024-10-25 16:48 | Outpatient (CLI) | payer OTHER, SELFPAY ==
[2019-10-17 21:06] VITALS: BMI 34.7
[2024-10-25 18:15] LABS: Hemoglobin A1C% w Est Avg Glu 6.8 % (4.0-6.0)
[2024-10-25 18:21] LABS: Blood Urea Nitrogen 11 mg/dL (7-17); Calcium 9.6 mg/dL (8.4-10.2); Carbon Dioxide 25 mmol/L (22-32); Chloride 101 mmol/L (98-107); Estimated Glomerular Filt Rate > 60 mL/min (>60); Glucose 101 mg/dL (70-99); Lipase 160 U/L (23-300); Potassium 3.7 mmol/L (3.4-5.1); Sodium 138 mmol/L (137-145)
[2024-10-25 18:26] LABS: HEMOLYSIS 69 (0-50)
== END ==
LOC: LAB 16:49
PROVIDERS: PCP Internal Medicine; Referring Provider Internal Medicine; Visit Provider Internal Medicine
DX: K85.90 Acute pancreatitis without necrosis or infection, unspecified (principal); E11.9 Type 2 diabetes mellitus without complications
CPT/HCPCS: 36415; 80048; 83036; 83690

== ENCOUNTER → 2024-12-25 11:31 | Outpatient (CLI) | payer OTHER, SELFPAY ==
[2019-10-17 21:06] VITALS: BMI 34.7
--- NOTE | 2024-12-25 12:04 | EKG_ITS ---
[place] [id number] [address] [place] [id number] Test Date: 2024-12-25 Pat Name: Elba Yeager Department: [facility] Room: Gender: Female Supervisor Boarding: KAMI : 1970 Requested By: Order Number: [id number] Reading MD: Nino Altamirano Measurements Intervals [place] Rate: 79 P: 59 HI: 184 QRS: 32 QRSD: 84 T: 15 QT: 356 QTc: 408 Interpretive Statements Normal sinus rhythm Electronically Signed On 12-26-2024 10:29:09 PDT by Nino Altamirano
== END ==
PROVIDERS: PCP Internal Medicine; Referring Provider Internal Medicine; Visit Provider Internal Medicine
DX: R07.9 Chest pain, unspecified (principal)
CPT/HCPCS: 93005

== ENCOUNTER → 2025-02-05 08:41 | Outpatient (CLI) | payer OTHER, SELFPAY ==
[2019-10-17 21:06] VITALS: BMI 34.7
[2025-02-05 09:35] LABS: Hemoglobin A1C% w Est Avg Glu 6.4 % (4.0-6.0)
[2025-02-05 09:51] LABS: Alanine Aminotransferase 15 IU/L (<35); Albumin 4.6 g/dL (3.5-5.0); Albumin Globulin Ratio 1.8 (1.0-2.8); Alkaline Phosphatase 74 U/L (38-126); Blood Urea Nitrogen 15 mg/dL (7-17); Calcium 9.4 mg/dL (8.4-10.2); Carbon Dioxide 24 mmol/L (22-32); Chloride 104 mmol/L (98-107); Estimated Glomerular Filt Rate > 60 mL/min (>60); Globulin 2.6 g/dL (1.7-4.1); Glucose 132 mg/dL (70-99); HEMOLYSIS < 15 (0-50); Potassium 3.9 mmol/L (3.4-5.1); Sodium 139 mmol/L (137-145); Total Protein 7.2 g/dL (6.3-8.2)
== END ==
PROVIDERS: PCP Internal Medicine; Referring Provider Internal Medicine; Visit Provider Internal Medicine
DX: E11.9 Type 2 diabetes mellitus without complications (principal)
CPT/HCPCS: 36415; 80053; 83036